=== PATIENT | female | born 1960 | race Caucasian/White ===

== ENCOUNTER → 2016-12-20 | Outpatient (CLI) | payer BC ==
[~2016-12-20] MED LIST: BENADRYL50 MG PO; CIPRO 500MG TA500 MG PO; FEROSUL325 MG PO; FLAGYL500 MG PO; FLEXERIL 1010 MG/TAB PO; FLEXERIL10 MG PO; LEVAQUIN 750MG750 M1 PO; LEVOTHYROXINE PO; LEVOXYL0.3 MG PO; METRONIDAZOLE500 MG PO; MULTIPLE VITAMI1 CAP PO; NORCO 325 MG-51 TAB PO; PERCOCET 325 MG1 TA2 PO; PHENERGAN W/CO120 M1 PO; POTASSIUM595 MG PO; PREVACID 15MG15 M1 PO; PRINZIDE 25 MG-1 TAB PO; SERTRALINE; VI-C1 CAP PO; VICODIN 5/5001 UDTAB PO; VITAMINC1000TA PO; ZANTAC; ZESTORETIC 12.51 TA1; ZOFRAN 4MG T4 MG/TAB PO; ZOFRAN ODT8 MG PO; ZOLOFT 100MG100 MG PO; ZYRTEC 10MG10 MG PO
== END ==
LOC: MC.RAD 12-06 10:20
DX: Z12.31 Encounter for screening mammogram for malignant neoplasm of breast (principal)

== ENCOUNTER → 2017-02-01 | Outpatient (CLI) | payer BC | LOC: SUN.DIA 11:40 | DX: E11.65 Type 2 diabetes mellitus with hyperglycemia (principal); Z71.3 Dietary counseling and surveillance; Z87.891 Personal history of nicotine dependence | CPT/HCPCS: G0109 ==

== ENCOUNTER → 2017-02-08 | Outpatient (CLI) | payer BC | LOC: SUN.DIA 10:32 | DX: E11.65 Type 2 diabetes mellitus with hyperglycemia (principal); Z71.3 Dietary counseling and surveillance; Z87.891 Personal history of nicotine dependence | CPT/HCPCS: G0109 ==

== ENCOUNTER → 2017-02-15 | Outpatient (CLI) | payer BC | LOC: SUN.DIA 12:58 | DX: E11.65 Type 2 diabetes mellitus with hyperglycemia (principal); Z71.3 Dietary counseling and surveillance; Z87.891 Personal history of nicotine dependence | CPT/HCPCS: G0109 ==

== ENCOUNTER 2017-02-16 09:16 | Emergency (ER) | payer BC ==
[~2017-02-16] VITALS: Ht 162.6 cm; Wt 124.5 kg
[~2017-02-16 09:16] MED LIST changes: -MULTIPLE VITAMI1 CAP PO
[2017-02-16 09:20] VITALS: BP 167/67; PULSE 63; TEMP 97.8
[2017-02-16] MEDS ORDERED: MULTIPLE VITAMI1 CAP PO (10:27)
[2017-02-16 10:33] LABS: PH 5 (5-8); URINE APPEARANCE Hazy; URINE BACTERIA Rare /hpf; URINE BILIRUBIN Negative (NEGATIVE); URINE BLOOD Negative (NEGATIVE); URINE COLOR Yellow; URINE GLUCOSE Negative (NEGATIVE); URINE KETONE Negative (NEGATIVE); URINE RBC None Seen /hpf; URINE UROBILINOGEN Negative (NEGATIVE); URINE WBC 0-2 /hpf
[2017-02-16 11:19] LABS: ADJUSTED CALCIUM 9.2 mg/dL (8.4-10.2); ALBUMIN 4.2 gm/dL (3.5-5.0); BILIRUBIN,TOTAL 0.8 mg/dL (0.0-1.0); C-REACTIVE PROTEIN 2.5 mg/dL (0.0-0.9); CALCIUM 9.4 mg/dL (8.4-10.2); CREATININE, serum 0.88 mg/dL (0.52-1.25); POTASSIUM 4.1 mmol/L (3.4-5.0); TOTAL PROTEIN 7.6 gm/dL (6.4-8.2)
[2017-02-16 11:30] LABS: BASO % 0.4 % (0.0-2.0); EOS # 0.2 (0.0-0.7); EOS % 1.7 % (0-4.0); GRAN # 6.2 (1.4-6.5); GRAN % 69.2 % (42.2-75.2); HEMATOCRIT 35.9 % (37.0-47.0); HEMOGLOBIN 11.5 g/dl (12.5-16.0); LYMPH # 2.1 (1.2-3.4); LYMPH % 23.3 % (20.0-51.0); MEAN CELL VOLUME 84 fl (80.0-100.0); MEAN CORPUSCULAR HEMOGLOBIN 27 pg (27.0-31.0); MEAN CORPUSCULAR HGB CONC 32 g/dl (33.0-37.0); MEAN PLATELET VOLUME 10.3 fl (7.4-10.4); MONO # 0.5 (0.1-0.6); PLATELET COUNT 200 K/mm3 (130-400); RED BLOOD COUNT 4.26 M/mm3 (4.10-5.30)
[2017-02-16] MEDS ORDERED: NORCO 325 MG-51 TAB PO (11:54)
== END 2017-02-16 12:08 | disposition home or self-care (01) ==
LOC: COL.ER 09:16
PROVIDERS: Emergency Medicine
DX: R10.31 Right lower quadrant pain (principal); R63.0 Anorexia; R11.0 Nausea; I10 Essential (primary) hypertension; R93.5 Abnormal findings on diagnostic imaging of other abdominal regions, including retroperitoneum
CPT/HCPCS: J1170; J1885; J2405; J7030

== ENCOUNTER → 2017-02-20 | Outpatient (CLI) | payer BC ==
[~2017-02-20] MED LIST changes: +MULTIPLE VITAMI1 CAP PO
== END ==
LOC: SUN.DIA 09:30
DX: E11.65 Type 2 diabetes mellitus with hyperglycemia (principal); E66.9 Obesity, unspecified; Z68.42 Body mass index [BMI] 45.0-49.9, adult; Z71.3 Dietary counseling and surveillance; I10 Essential (primary) hypertension; E03.9 Hypothyroidism, unspecified; Z87.891 Personal history of nicotine dependence
CPT/HCPCS: G0108

== ENCOUNTER → 2017-02-22 | Outpatient (CLI) | payer BC | LOC: SUN.DIA 18:00 | DX: E11.65 Type 2 diabetes mellitus with hyperglycemia (principal); E66.9 Obesity, unspecified; Z71.3 Dietary counseling and surveillance; E78.5 Hyperlipidemia, unspecified; I10 Essential (primary) hypertension; E03.9 Hypothyroidism, unspecified | CPT/HCPCS: G0109 ==

== ENCOUNTER → 2017-03-03 | Outpatient (CLI) | payer BC | LOC: COL.RAD 15:18 | DX: N28.1 Cyst of kidney, acquired (principal) ==

== ENCOUNTER → 2017-03-08 | Outpatient (CLI) | payer BC | LOC: SUN.DIA 10:18 | DX: E11.65 Type 2 diabetes mellitus with hyperglycemia (principal); E66.9 Obesity, unspecified; Z68.42 Body mass index [BMI] 45.0-49.9, adult; Z71.3 Dietary counseling and surveillance; I10 Essential (primary) hypertension; E03.9 Hypothyroidism, unspecified; Z87.891 Personal history of nicotine dependence | CPT/HCPCS: G0108 ==

== ENCOUNTER → 2017-04-13 | Outpatient (CLI) | payer BC | LOC: SUN.DIA 04-12 10:11 | DX: E11.65 Type 2 diabetes mellitus with hyperglycemia (principal); E66.9 Obesity, unspecified; Z68.42 Body mass index [BMI] 45.0-49.9, adult; Z71.3 Dietary counseling and surveillance; I10 Essential (primary) hypertension; E03.9 Hypothyroidism, unspecified; Z87.891 Personal history of nicotine dependence | CPT/HCPCS: G0108 ==

== ENCOUNTER → 2017-04-18 | Outpatient (REF) | LOC: WSOH 08:04 | DX: Z02.4 Encounter for examination for driving license (principal) ==

== ENCOUNTER → 2017-08-15 | Outpatient (CLI) | payer OTHER | LOC: SUN.DIA 08:37 | DX: E11.9 Type 2 diabetes mellitus without complications (principal); I10 Essential (primary) hypertension; E03.9 Hypothyroidism, unspecified; E66.9 Obesity, unspecified; Z68.42 Body mass index [BMI] 45.0-49.9, adult; Z71.3 Dietary counseling and surveillance; Z87.891 Personal history of nicotine dependence | CPT/HCPCS: G0108 ==

== ENCOUNTER → 2017-12-12 | Outpatient (CLI) | payer OTHER | LOC: SUN.DIA 09:16 | DX: E11.9 Type 2 diabetes mellitus without complications (principal); I10 Essential (primary) hypertension; E03.9 Hypothyroidism, unspecified; E66.9 Obesity, unspecified; Z68.42 Body mass index [BMI] 45.0-49.9, adult; Z71.3 Dietary counseling and surveillance; Z87.891 Personal history of nicotine dependence | CPT/HCPCS: G0108 ==

== ENCOUNTER 2018-01-12 14:02 | Emergency (ER) | payer SELFPAY ==
[~2018-01-12] VITALS: Ht 162.6 cm; Wt 121.4 kg
[2018-01-12 14:04] VITALS: BP 130/65; TEMP 100.2
[2018-01-12] MEDS ORDERED: GLUCOPHAGE500 MG/TAB PO (14:23)
[2018-01-12] MEDS ORDERED: SYNTHROID0.3 MG PO (14:54)
[2018-01-12 14:58] LABS: BASO % 0.6 % (0.0-2.0); EOS % 0.1 % (0-4.0); GRAN # 5.2 (1.4-6.5); HEMATOCRIT 38.5 % (37.0-47.0); LYMPH % 15.6 % (20.0-51.0); MEAN CELL VOLUME 85 fl (80.0-100.0); MEAN CORPUSCULAR HEMOGLOBIN 26 pg (27.0-31.0); MEAN CORPUSCULAR HGB CONC 31 g/dl (33.0-37.0); MEAN PLATELET VOLUME 10.6 fl (7.4-10.4); MONO # 0.3 (0.1-0.6); MONO % 5.1 % (1.7-9.3); PLATELET COUNT 168 K/mm3 (130-400); RED BLOOD COUNT 4.54 M/mm3 (4.10-5.30); REDCELL DISTRIBUTION WIDTH-CV 15.9 % (11.5-14.5)
[2018-01-12 15:00] LABS: HEMOGLOBIN 11.9 g/dl (12.5-16.0)
[2018-01-12 15:08] LABS: BILIRUBIN,TOTAL 0.5 mg/dL (0.0-1.0); CALCIUM 9.3 mg/dL (8.4-10.2); CREATININE, serum 1.14 mg/dL (0.52-1.25); POTASSIUM 4.4 mmol/L (3.4-5.0)
[2018-01-12 16:00] VITALS: PULSE 86
== END 2018-01-12 16:00 | disposition home or self-care (01) ==
LOC: COL.ER 14:02
PROVIDERS: Physician Assistant
DX: J10.1 Influenza due to other identified influenza virus with other respiratory manifestations (principal); I10 Essential (primary) hypertension; E11.9 Type 2 diabetes mellitus without complications; Z90.49 Acquired absence of other specified parts of digestive tract; Z90.710 Acquired absence of both cervix and uterus; Z98.890 Other specified postprocedural states; Z87.891 Personal history of nicotine dependence; Z79.84 Long term (current) use of oral hypoglycemic drugs

== ENCOUNTER → 2019-01-10 | Outpatient (CLI) | payer OTHER ==
[~2019-01-10] MED LIST changes: +GLUCOPHAGE500 MG/TAB PO; +SYNTHROID0.3 MG PO
== END ==
LOC: SUN.DIA 09:11
DX: E11.9 Type 2 diabetes mellitus without complications (principal); I10 Essential (primary) hypertension; E03.9 Hypothyroidism, unspecified; E66.9 Obesity, unspecified
CPT/HCPCS: G0108

== ENCOUNTER 2019-03-28 08:00 | Outpatient (RCR) | payer OTHER | END 2019-04-29 10:24 | disposition home or self-care (01) | LOC: MKS.ESL.PT 08:00 | DX: M25.561 Pain in right knee (principal) ==

== ENCOUNTER 2019-05-11 10:08 | Emergency (ER) | payer OTHER ==
[~2019-05-11] VITALS: Ht 162.6 cm; Wt 119.1 kg
[2019-05-11 10:14] VITALS: BP 147/74
[2019-05-11 11:10] VITALS: PULSE 82; TEMP 98.8
== END 2019-05-11 11:10 | disposition home or self-care (01) ==
LOC: COL.ER 10:08
DX: M25.561 Pain in right knee (principal); F17.210 Nicotine dependence, cigarettes, uncomplicated

== ENCOUNTER 2022-01-25 06:54 | Day surgery (SDC) | payer BC, OTHER ==
[~2022-01-25] VITALS: Ht 162.6 cm; Wt 116.9 kg
[2022-01-25] MEDS ORDERED: GLUCOPHAGE500 MG/TAB PO (07:21)
[2022-01-25] MEDS ORDERED: PRILOSEC 20MG20 MG PO (07:22)
[2022-01-25 07:29] VITALS: BP 147/84; PULSE 17; TEMP 96.9
--- NOTE | 2022-01-25 07:55 | NUR ---
Jose perez called, no answer
--- NOTE | 2022-01-25 08:10 | NUR ---
Anesthesia desk called for elevated blood sugar. No answer.
[2022-01-25 09:10] VITALS: BP 150/80; PULSE 75; TEMP 97.8
--- NOTE | 2022-01-25 09:10 | NUR ---
TO BAY 1 VIA BED FROM [facility] ROOM, PT WALKED TO CHAIR, DAUGHTERS IN ROOM. CALL LIGHT IN REACH, PT TAKES POP AND MUFFIN, NO C/O
[2022-01-25 09:25] VITALS: BP 155/78; PULSE 73
[2022-01-25 09:40] VITALS: BP 152/82; PULSE 75
--- NOTE | 2022-01-25 09:40 | NUR ---
DR JAIMES TALKED WITH PT AND FAMILY. IV D'CD INTACT. PT UP IN ROOM DRESSED. REVIEWED DISCHARGE INST. WITH PT ON PRECAUTIONS, FOLLOWUP ACTIVITY WITH VERBAL UNDERSTANDING. PT DISCHARGED AT 0950 VIA W/C TO CAR
== END 2022-01-25 09:50 | disposition home or self-care (01) ==
LOC: SDCO 06:54
DX: Z12.11 Encounter for screening for malignant neoplasm of colon (principal); K57.30 Diverticulosis of large intestine without perforation or abscess without bleeding; K64.0 First degree hemorrhoids; Z86.010 Personal history of colon polyps; F17.210 Nicotine dependence, cigarettes, uncomplicated
CPT/HCPCS: J2704; J7030